=== PATIENT | female | born 2000 | race Caucasian/White ===

== ENCOUNTER 2023-05-30 05:59 | Observation (INO) ==
--- NOTE | 2023-05-20 12:15 | Anesthesiology Consultation ---
Date of Service May 20, 2023 Assessment & Plan (1) Encounter for pre-operative examination: Plan - check urine test STAT am DOS. - COVID screening: Per efficiency analyst on 05/19/2023: Travel screen-returned from [place] 05/10/23, no known COVID-19 positive contacts or current COVID-19 related symptoms in past 2 weeks. To surgeon's discretion if preop COVID testing is needed. Chart Review Chart Review: Acceptable Risk for Surgery and Patient NOT seen in Pre Admission Testing History Surgery Operation Date: 05/30/23 11:40 Proposed Procedures p Bilateral Mastopexy with Free Nipple Grafting - Neli Whitehead MD Height/Weight Height: 5 ft 8 in Weight: 83.915 kg Allergies Allergy/AdvReac Type Severity Reaction Status Date / Time No Known Allergies Allergy Verified 05/19/23 16:34 Medications Home Medications Medication Instructions Recorded Confirmed Last Taken testosterone enanthate 50 mg/0.5 50 mg subcut Q7D 01/24/23 05/19/23 Unknown mL subcutaneous auto-injector cephalexin 500 mg capsule 500 mg PO TID 1 week #21 caps 05/18/23 05/18/23 Unknown oxycodone-acetaminophen 5 mg-325 1 tab PO Q4H PRN pain #14 tabs 05/18/23 05/18/23 Unknown mg tablet (Endocet) Past Medical History Medical History Asthma in childhood--no inhaler/no issues currently History of COVID-19 04/2022--mild symptoms, no symptoms now Past Family History Family History Father Heart disease Other Cancer Diabetes No family history of adverse response to anesthesia Past Surgical History Surgical History History of wisdom tooth extraction 2016 Social History Smoking Status: Never smoker Do You Dip or Chew Tobacco: No Hx Alcohol Use: Yes alcohol intake frequency: a few times a month Hx Substance Use: No substance use type: does not use Lab Results Anesthesia Preop Results Results Anesthesia Widget: WBC 7.99 K/ul (4.8-10.8) 05/18/23 Hgb 16.2 g/dl (12.0-16.0) H 05/18/23 Hct 45.3 % (37.0-47.0) 05/18/23 Plt 170 K/uL (130-400) 05/18/23 Na 139 mmol/L (136-145) 05/18/23 K 4.2 mmol/L (3.5-5.1) 05/18/23 Cl 104 mmol/L (98-107) 05/18/23 CO2 28 mmol/L (21-32) 05/18/23 BUN 16 mg/dl (6-23) 05/18/23 Creat 1.15 mg/dl (0.6-1.2) 05/18/23 Glucose Level 81 mg/dl (70-99(Fasting)) 05/18/23 PT 11.2 Seconds (9.0-12.0) 05/18/23 INR 1.0 (0.9-1.1) 05/18/23
[2023-05-30] MEDS ORDERED: LACTATED RINGER'S 1,000 ML IV SCH (06:00)
[2023-05-30] MEDS ORDERED: ceFAZolin 2000MG 2,000 MG/15 ML SYR IV SCH (06:00)
[2023-05-30] MEDS ORDERED: MoRPHine SULFATE 10 MG/ML CARP/VIAL IV PRN (06:50)
[2023-05-30] MEDS ORDERED: MEPERIDINE HCL 25 MG/ML CARP/VIAL IV PRN (06:50)
[2023-05-30] MEDS ORDERED: fentaNYL citrate PF 100 MCG/2 ML VIAL IV PRN (06:50)
[2023-05-30] MEDS ORDERED: METOCLOPRAMIDE HCL INJ 5 MG/ML 2 ML VIAL IV PRN (06:50)
[2023-05-30] MEDS ORDERED: ATROPINE SULFATE 0.1 MG/ML 10ML SYR IV PRN (06:50)
[2023-05-30] MEDS ORDERED: ePHEDrine sulfate 50 MG/ML AMP IV PRN (06:50)
[2023-05-30] MEDS ORDERED: DEXAMETHASONE SOD INJ 4 MG/ML VIAL IV PRN (06:50)
[2023-05-30] MEDS ORDERED: ONDANSETRON INJ 2 MG/ML 2 ML VIAL IV PRN ×2 (06:50→11:25)
--- NOTE | 2023-05-30 06:59 | History & Physical Bridge Note ---
Date of Service May 30, 2023 History & Physical Bridge Note I have examined the patient, reviewed the History & Physical and in the interval since the performance of the History & Physical I have noted the following changes of clinical significance: no changes noted
[2023-05-30] MEDS ORDERED: MIDAZOLAM HCL 1 MG/ML 2ML VIAL ONE (07:10)
[2023-05-30] MEDS ORDERED: ONDANSETRON INJ 2 MG/ML 2 ML VIAL ONE ×2 (07:10→08:11)
[2023-05-30] MEDS ORDERED: LIDOCAINE 2% 2 ML VIAL/AMP(20MG/ML) INFIL ONE (07:10)
[2023-05-30] MEDS ORDERED: DEXAMETHASONE SOD INJ 4 MG/ML VIAL ONE (07:10)
[2023-05-30] MEDS ORDERED: fentaNYL citrate PF 100 MCG/2 ML VIAL ONE (07:10)
[2023-05-30] MEDS ORDERED: PROPOFOL IV EMULSION 10 MG/ML 20 ML VIAL IV ONE (07:10)
[2023-05-30] MEDS ORDERED: ROCURONIUM BROMIDE 10 MG/ML 5 ML VIAL IV ONE (07:11)
[2023-05-30] MEDS ORDERED: ACETAMINOPHEN 1000 MG/100 ML IV IV ONE (07:12)
[2023-05-30] MEDS ORDERED: LIDOCAINE 1%/EPINEPHRINE 1:100,000 20 ML VIAL ONE (07:22)
[2023-05-30] MEDS ORDERED: BUPIVACAINE 0.25% PF 30 ML VIAL ONE (07:22)
[2023-05-30] MEDS ORDERED: SCOPOLAMINE 1 MG TDSY TD ONE (07:23)
[2023-05-30] MEDS ORDERED: SUGAMMADEX SODIUM 200 MG/2 ML VIAL IV ONE (08:12)
[2023-05-30] MEDS ORDERED: HYDROmorphone INJ 1 MG/ML SYRINGE ONE (08:52)
--- NOTE | 2023-05-30 10:24 | Post Operative Brief Note ---
PG Immediate Post Op with CF Date of Surgery May 30, 2023 Pre & Post Diagnosis Operation Date: 05/30/23 07:30 Pre-Op Diagnosis: Gender Dysphoria in Adults Post-Op Diagnosis: Gender Dysphoria in Adults I identified the patient and participated in the time-out.: Yes Procedure Operation Date: 05/30/23 07:30 Actual Procedures p Bilateral Non-Cancerous Mastectomy with Free Nipple Grafting - Neli Whitehead MD Surgeon Neli Whitehead MD Legal Specialist Maryellen De La Rosa PA-C Estimated Blood Loss 10 Findings Consistent with Post-Op Diagnosis Specimens Specimen Description: A. Left breast tissue, fresh; left room @ 0845 B. Right breast tissue, fresh; left room @ 0930 Drains Mayur-Espinoza Drain (15FR x2)
--- NOTE | 2023-05-30 10:25 | Operative Report ---
PG Post Operative Report Pre & Post Diagnosis Operation Date: 05/30/23 07:30 Pre-Op Diagnosis: Gender Dysphoria in Adults Post-Op Diagnosis: Gender Dysphoria in Adults I identified the patient and participated in the time-out.: Yes Procedure Operation Date: 05/30/23 07:30 Actual Procedures p Bilateral Non-Cancerous Mastectomy with Free Nipple Grafting - Neli Whitehead MD Surgeon Neli Whitehead MD Esl Teacher Maryellen De La Rosa PA-C Estimated Blood Loss 10 Findings Consistent with Post-Op Diagnosis Specimens bilateral breasts to pathology Drains [id number] Anesthesia Type General Complications none Indications transgender male desiring gender affirming mastectomy Description of Procedure The risks benefits and alternatives of the procedure were explained to the patient who agreed and signed consent. He was identified and marked in the preoperative holding area. I marked the incisions about 1 cm superior to the inframammary folds and marked the superior incision in an elliptical fashion in order to provide a horizontal scar pattern if possible. Nipple site was confirmed with the patient. He was brought to the operating room where he was placed under general anesthesia in supine position without incident. Surgical site was prepped and draped sterilely. A time out procedure was performed. 1% lidocaine with epinephrine was used to anesthetize the planned incisions. Nipple areolar complex grafts were harvested. I elected to use a 25 mm cookie cutter to size an areolar graft. It was harvested using a 15 blade scalpel and was defatted using a curved iris scissor.A 15 blade scalpel was used to harvest a separate nipple graft. They were placed on the back table in a saline soaked sponge until I was ready to place the grafts. I began by making the inferior incision using 15 blade scalpel. Incision was deepened through dermis using electrocautery, and deepened down to the chest wall. I began raising the breast off of underlying pectoralis fascia until I could confirm that the wound could be closed without tension. I then confirmed marking of the superior incision, which was made with a 15 blade scalpel and deepened using electrocautery. The breast was passed off as specimen. Superiorly, breast was undermined to the clavicle and the superior flap was further thinned until it was of uniform thickness, approximately 2 cm in thickness and just slightly thicker than the thickness of the abdominal subcutaneous tissue. Throughout dissection, hemostasis was achieved using the bovie. I did perform some additional undermining inferiorly along the inframammary fold to facilitate closure and disrupt the inframammary fold. Prior to closure, the wound was irrigated, examined for hemostasis. A 15 Maori Jamey drain was placed in the wound bed and brought out through a separate stab incision laterally.Deep dermis was closed using 2-0 Vicryl interrupted sutures, superficial dermis closed using 2-0 PDO running Quill suture, and subcuticular wound closure was performed using 3-0 Monocryl. Following closure, the nipple areolar complex was inset. I made a circular incision at the lateral border of pectoralis and just superior to the incision. This was de-epithelialized. The nipple areolar graft was inset first using 5-0 plain gut suture. An identical procedure was performed on the right side. The graft was inset using 5-0 fast absorbing suture. 6 4-0 silk tie over bolster sutures were placed, and a Xeroform and cotton bolster was placed. Dry dressings and drain sponges were placed. A binder was placed. Procedure was tolerated well. Patient was awakened and transferred to the recovery room in satisfactory condition. Noris Vuong PA-C was present and scrubbed throughout the entire procedure. She assisted in retraction, hemostasis, and simultaneous wound closure. I attest to the content of the Intraoperative Record and any orders documented therein. Any exceptions are noted below.
--- NOTE | 2023-05-30 11:11 | Anesthesiology Progress Note ---
Date of Service May 30, 2023 Anesthesia Post Procedure Vital Signs Vital Signs: Temp Pulse Pulse Resp BP Pulse Ox O2 Del Method 05/30/23 10:56 51 L 13 126/65 100 Room Air 05/30/23 10:45 75 12 127/55 L 100 Oxymask 05/30/23 10:36 36.6 C 75 12 107/67 100 Oxymask 05/30/23 06:34 36.9 C 61 20 141/74 H 99 Room Air O2 Flow Rate 05/30/23 10:56 05/30/23 10:45 3 05/30/23 10:36 9 05/30/23 06:34 Transfer of Care Handoff Completed per policy Notes Mental Status: alert / awake / arousable Patient Amnestic to Procedure: Yes Nausea / Vomiting: adequately controlled Pain: adequately controlled Airway Patency, RR, SpO2: stable & adequate BP & HR: stable & adequate Hydration State: stable & adequate Anesthetic Complications: no major complications apparent and Pt Satisfied with anesthetic care
[2023-05-30] MEDS ORDERED: oxyCODONE/ACETAMINOPHEN 5mg/325mg TAB PO PRN (11:25)
[2023-05-30] MEDS ORDERED: diphenhydrAMINE Capsule 25 MG CAP PO PRN (11:25)
[2023-05-30] MEDS ORDERED: MoRPHine SULFATE 2 MG/ML CARP IV PRN (11:25)
[2023-05-30] MEDS ORDERED: LORazepam 0.5 MG TAB PO PRN (11:25)
[2023-05-30] MEDS ORDERED: diphenhydrAMINE 50 MG/ML VIAL IV PRN (11:25)
[2023-05-30] MEDS ORDERED: MoRPHine SULFATE 4 MG/ML 1 ML CARP\\VIAL IV PRN (11:25)
[2023-05-30] MEDS ORDERED: PROMETHAZINE HCL 12.5 MG in SODIUM CHLORIDE 0.9% 50 ML IV PRN (11:25)
[2023-05-30] MEDS: oxyCODONE/ACETAMINOPHEN 5mg/325mg TAB PO PRN ×3 (11:53→21:01)
[2023-05-30] MEDS: D5W AND 1/2NSS + 20MEQ KCL 20 MEQ/1,000 ML BAG IV SCH (12:14)
[2023-05-30] MEDS: ceFAZolin 2000MG 2,000 MG/15 ML SYR IV SCH ×2 (15:05→22:33)
[2023-05-31] MEDS: D5W AND 1/2NSS + 20MEQ KCL 20 MEQ/1,000 ML BAG IV SCH (01:20)
[2023-05-31] MEDS: oxyCODONE/ACETAMINOPHEN 5mg/325mg TAB PO PRN ×2 (04:28→09:44)
--- NOTE | 2023-05-31 09:03 | Surgery Progress Note ---
Date of Service May 31, 2023 Assessment & Plan (1) S/P mastectomy, bilateral: Plan: S/P top surgery. Doing well, d/c home today. Post-op restrictions reviewed. Mom was present during exam. Admission and Anticipated Discharge Date Admission Date: May 30, 2023 Subjective Patient resting comfortably. Pain is well controlled. Tolerating regular diet. Physical Exam Physical Exam: drains with serous output. dressings intact Results & Data Vital Signs (Past 12 Hours) Vital Signs Temp Pulse Resp BP Pulse Ox O2 Del Method 05/31/23 07:15 36.7 C 56 L 16 122/73 97 Room Air 05/31/23 04:30 37.2 C 50 L 18 113/66 97 Room Air 05/30/23 23:00 36.9 C 52 L 18 109/65 98 Room Air PG Care Time/CCT Total # of Minutes Spent Total Time Spent with Patient: Total time spent is greater than 50% in coordination of care (as documented) at patient's floor/unit and/or counseling patient: Coding Level of Care Code 50457 Post Operative Follow-Up Diagnoses S/P mastectomy, bilateral Z90.13
--- NOTE | 2023-05-31 14:55 | Discharge Summary ---
Date of Service May 31, 2023 Admission HPI Per Admitting Provider History of gender dysphoria Admission Exam Per Admitting Provider see H&P Principal Diagnosis Gender Dysphoria Discharge Exam drains with serous output. dressings intact Discharge Data Allergies Allergy/AdvReac Type Severity Reaction Status Date / Time No Known Allergies Allergy Verified 05/30/23 06:32 Procedures Performed Operation Date: 05/30/23 07:30 Actual Procedures p Bilateral Non-Cancerous Mastectomy with Free Nipple Grafting - Neli Whitehead MD Hospital Course (1) S/P mastectomy, bilateral: Patient presented to [facility] with history of gender dysphoria. He was taken to the OR and underwent bilateral mastectomy with free nipple graft. There were no intraoperative complications. He was taken to recovery and transferred to med/surg for observation. On POD#1, he was feeling well. He was tolerating a r egular diet and ambulating. On exam, his vitals were stable. His incisions were CDI and bolster in place. Drains had serous output. He was discharged home, instructions to follow-up in one week in the office. Total Time Total Time Spent Total Time Spent (In Minutes): 20 Total Time Includes: Examination of the Patient, Medication Reconciliation and Communication With Other Providers Discharge Plan Discharge Items Patient Disposition: Home - Self-Care Reason For Visit: Gender Dysphoria in Adults Discharge Diagnosis: s/p bilateral mastectomy Activity: As commented below Non-emergency contact: Surgeon Call non-emergency contact if: you have any medication questions, your pain is not controlled, you have a fever, your wound has increased drainage and your wound pain has increased Follow-up/Referrals: Maryellen De La Rosa PA-C [Physician Food Processing Scientist] - Oralia Serna RN [Primary Care Provider] - Diet: Regular Addtl Attending Provider Instructions: ACTIVITY RECOMMENDATIONS: __Normal activities _x_No bending, lifting or straining. Keep arms at shoulder height or below __No driving __Driving allowed when you are off pain medications _x_Walking permitted __You should have help at home for ___ days DRESSINGS: __No dressings required _x_Keep dressings dry/in place until first office visit. You may adjust the binder for comfort, but it must remain in place at all times. Do not get gauze dressings wet. __Remove dressings ___ and leave dressings off __Apply ice ___ days __Remove dressings and reapply garment __Apply antibiotic ointment (Bacitracin, Neosporin, etc) to wounds 3-4 times/day for 10 days BATHING: _x_Keep dressings dry _x_Sponge bathing permitted away from surgical dressings __Showering permitted _x_No swimming, hot tubs or soaking in a tub MEDICATIONS: Resume previous medications unless instructed otherwise by your surgeon. _x_Do not use aspirin, Motrin, Advil or Ibuprofen as these may promote bleeding. Please use Tylenol. _x_Prescription(s) provided: pain medication and antibiotics were prescribed at your last office visit. start antibiotics today OTHER INSTRUCTIONS: _x_Record drain output 2-3 times per day. Drain is ready to be removed when total output over 24 hours is 10cc. One drain may be ready and meet criteria before the other. Call the office to review output when you feel it is ready to be removed. SPECIAL CARE INSTRUCTIONS: * It is normal to have a mild fever after surgery. If your temperature is higher than 101.5 degrees F, please call the office at [phone]. * Constipation is a typical side effect of pain medication. An [id number]-[id number] stool softener will help relieve this. * Leaking around surgical drains may occur and should not cause concern. Sometimes these drains become clogged. If this happens, remove the bulb and milk the clot out of the tube, then replace the bulb. * Drainage from wounds after liposuction is normal and should be expected. Garments will become soiled. You should protect furniture and bedding. This drainage should mostly subside within 2-3 days. Leave garments in place unless instructed to remove them. * If you have unusual drainage from a wound or are concerned you have an infection or have any questions or concerns, please call the office at [phone]. FOLLOW UP VISIT: If not already scheduled, please call the office, , when you return home after surgery to schedule an appointment to be seen in __7_ days. Pending Studies at Discharge: Yes Stand-Alone Forms: [facility], Pain - Opioid Pain Management, Smoking Cessation Medications and DC Order Prescriptions: Continued testosterone enanthate 50 mg/0.5 mL auto-injector 50 mg subcut Q7D Patient Comments: takes on saturdays oxycodone-acetaminophen [Endocet] 5-325 mg tablet 1 tab PO Q4H PRN (Reason: pain) Qty: 14 0RF Rx Instructions: initial therapy Dr. Whitehead [id number] cephalexin 500 mg capsule 500 mg PO TID 7 Days Qty: 21 0RF Discharge Orders: Discharge Order (Routine); Ordered 05/31/23 Ordered By: Maryellen Ng/Other Patient Handouts: Mayur Espinoza Drain Tube Dc Admission Data Admit Date/Time: 05/30/23 10:37 Attending Provider: Neli Whitehead Admit Provider: Neli Whitehead Primary Care Provider: Oralia Serna Other Interventions: Discharge Summary Assessment (RN) Last Done: 05/31/23 09:28 Coding Level of Care Code 16914 OBS Care - Discharge Diagnoses S/P mastectomy, bilateral Z90.13
== END 2023-05-31 10:40 | disposition home or self-care (01) ==
LOC: 3W 05:59 → ASU 05:59
DX: F64.9 Gender identity disorder, unspecified